=== PATIENT | female | born 1955 | race Caucasian/White ===

== ENCOUNTER 2018-12-25 09:54 | Emergency (ER) | payer SELFPAY ==
[~2018-12-25] VITALS: Ht 152.4 cm; Wt 78.0 kg
[2018-12-25] MEDS ORDERED: IBUPROFEN 600MG TABLET PO STA (10:53)
[2018-12-25 11:15] VITALS: BP 152/77
== END 2018-12-25 13:54 | disposition home or self-care (01) ==
LOC: ER 09:54
DX: S80.02XA Contusion of left knee, initial encounter (principal); M25.512 Pain in left shoulder; W01.198A Fall on same level from slipping, tripping and stumbling with subsequent striking against other object, initial encounter; Y93.89 Activity, other specified; Y92.512 Supermarket, store or market as the place of occurrence of the external cause
CPT/HCPCS: 73030; 73060; 73090; 73130; 73562; 99283

== ENCOUNTER 2024-07-01 07:42 | Emergency (ER) | payer OTHER, MEDICAID ==
[~2024-07-01] VITALS: Ht 157.5 cm; Wt 60.0 kg
[2024-07-01 07:50] VITALS: O2SAT 98
[2024-07-01] MEDS: TETANUS, DIPHTHERIA, PERTUSSIS VAC/PF 0.5ML (>10YR OLD) IM ONE (08:45)
[2024-07-01] MEDS: ACETAMINOPHEN 325MG TABLET PO ONE (08:45)
[2024-07-01] MEDS: BACITRACIN ZINC OINT UDPKT TOP ONE (08:45)
[2024-07-01] MEDS: LIDOCAINE HCL/PF 1% 10 MG/ML 5ML VIAL INFIL ONE (08:45)
[2024-07-01] MEDS ORDERED: IBUP-2029 MT (10:48)
[2024-07-01 11:54] VITALS: BP 162/71; PULSE 70; RESP 18; TEMP 36.8; O2SAT 98
== END 2024-07-01 11:57 | disposition home or self-care (01) ==
LOC: ER 07:42
DX: S01.112A Laceration without foreign body of left eyelid and periocular area, initial encounter (principal); S83.91XA Sprain of unspecified site of right knee, initial encounter; S09.90XA Unspecified injury of head, initial encounter; E11.9 Type 2 diabetes mellitus without complications; I10 Essential (primary) hypertension; Z90.49 Acquired absence of other specified parts of digestive tract; Z86.73 Personal history of transient ischemic attack (TIA), and cerebral infarction without residual deficits; W19.XXXA Unspecified fall, initial encounter; Y93.89 Activity, other specified; Y92.89 Other specified places as the place of occurrence of the external cause; Y99.8 Other external cause status
CPT/HCPCS: 99285; 70450; 73564; 70486; 90715; 12011; 90471; J2003

== ENCOUNTER 2025-01-16 10:23 | Emergency (ER) | payer OTHER, MEDICAID ==
[~2025-01-16] VITALS: Ht 157.5 cm; Wt 66.0 kg
[~2025-01-16 10:23] MED LIST: IBUP-1455 MT
[2025-01-16 10:37] VITALS: O2SAT 100
[2025-01-16 11:00] VITALS: BP 138/67; PULSE 82; RESP 18; TEMP 36.6; O2SAT 100
[2025-01-16 11:09] VITALS: TEMP 97.9
[2025-01-16] MEDS: ACETAMINOPHEN 325MG TABLET PO ONE (11:09)
[2025-01-16 11:10] LABS: BASOPHILS % 0.3 % (0.0-2.0); EOSINOPHILS % 0.2 % (0.0-5.0); HEMATOCRIT. 41.0 % (36.0-48.0); HEMOGLOBIN. 13.3 g/dL (12.0-16.0); LYMPHOCYTES % 21.0 % (20.0-50.0); MEAN PLATELET VOLUME 8.3 fl (7.4-10.4); MONOCYTES % 5.5 % (2.0-8.0); NEUTROPHILS % 73.0 % (40.0-76.0); PLATELET 242 x1000/uL (130-400); RED BLOOD CELL COUNT 4.72 mill/uL (4.2-5.4); RED CELL DISTRIBUTION WIDTH 14.3 % (11.6-14.6)
[2025-01-16 11:26] LABS: CREATININE 0.6 mg/dL (0.6-1.0); TROPONIN I HIGH SENSITIVITY < 4 ng/L (3.0-34); UREA NITROGEN BLOOD 11 mg/dL (9-23)
[2025-01-16 11:28] LABS: ASPARTATE AMINOTRANSFERASE 32 IU/L (<34); BILIRUBIN DIRECT 0.3 mg/dL (<=3.0); BILIRUBIN TOTAL 1.3 mg/dL (0.1-1.0); PROTEIN TOTAL 7.5 g/dL (6.0-8.3)
== END 2025-01-16 13:00 | disposition left against medical advice (07) ==
LOC: ER 10:23 → CMPBEDREQ 18:23
DX: S09.90XA Unspecified injury of head, initial encounter (principal); R42 Dizziness and giddiness; R07.9 Chest pain, unspecified; R53.1 Weakness; E11.9 Type 2 diabetes mellitus without complications; I10 Essential (primary) hypertension; Z90.49 Acquired absence of other specified parts of digestive tract; Z86.73 Personal history of transient ischemic attack (TIA), and cerebral infarction without residual deficits; W01.0XXA Fall on same level from slipping, tripping and stumbling without subsequent striking against object, initial encounter; Y92.480 Sidewalk as the place of occurrence of the external cause; Y93.89 Activity, other specified; Y99.8 Other external cause status
CPT/HCPCS: 36415; 71045; 72170; 73090; 73130; 73562; 80048; 80076; 82962; 84484; 85025; 93005; 99285